=== PATIENT | male | born 1960 | race African-American/Black ===

== ENCOUNTER 2017-01-17 21:50 | Emergency (ER) | payer OTHER ==
[~2017-01-17] VITALS: Ht 177.8 cm; Wt 79.4 kg
[2017-01-17 21:52] VITALS: BP 142/89
[2017-01-17] MEDS ORDERED: NAPROSYN500 MG PO (22:31)
== END 2017-01-17 23:10 | disposition home or self-care (01) ==
LOC: ER 21:50
DX: M25.511 Pain in right shoulder (principal); F10.99 Alcohol use, unspecified with unspecified alcohol-induced disorder